=== PATIENT | female | born 1970 | race Caucasian/White ===

== ENCOUNTER 2020-04-10 15:40 | Emergency (ER) | payer OTHER ==
[~2020-04-10 15:40] MED LIST: AMITRIPTYLINE H25 MG PO; ASPIRIN EC81 MG PO; ATORVASTATIN CA20 MG PO; BENTYL 20MG TAB20 MG PO; KEFLEX CAP 500500 MG PO; LOPRESSOR 25 MG25 MG PO; NEURONTIN800 MG PO; PERCOCET 5/325 T1 EA PO; PHENERGAN 25 MG25 M1 PO; PYRIDIUM200 MG PO; ZOFRAN4 MG PO
[2020-04-10 17:07] LABS: BUN/CREATININE RATIO 23 (0-10)
[2020-04-10 17:31] LABS: HEMOGLOBIN 11.6 gm/dl (12.3-15.3); RED BLOOD COUNT 4.02 M/UL (4.00-5.10)
== END 2020-04-10 18:41 | disposition home or self-care (01) ==
LOC: ER1 15:40
PROVIDERS: Preventive Medicine Occupational Medicine
DX: I47.1 Supraventricular tachycardia (principal); Z88.5 Allergy status to narcotic agent; Z88.8 Allergy status to other drugs, medicaments and biological substances
CPT/HCPCS: 80048; 82550; 82553; 83874; 84484; 85025; 93005; 96374; 99285; J0153

== ENCOUNTER → 2020-04-26 | Outpatient (CLI) | payer OTHER ==
[2020-04-26 09:03] LABS: HEMOGLOBIN 12.2 gm/dl (12.3-15.3); RED BLOOD COUNT 4.16 M/UL (4.00-5.10); WHITE BLOOD COUNT 7.5 K/UL (4.5-11.0)
[2020-04-26 09:24] LABS: BUN/CREATININE RATIO 18 (0-10)
== END ==
LOC: LAB 08:19
PROVIDERS: Internal Medicine Cardiovascular Disease
DX: R07.9 Chest pain, unspecified (principal); I47.1 Supraventricular tachycardia; R00.2 Palpitations; E78.00 Pure hypercholesterolemia, unspecified
CPT/HCPCS: 36415; 71046; 80048; 80061; 85025

== ENCOUNTER 2020-04-30 09:12 | Outpatient (CLI) | payer OTHER ==
[~2020-04-30] VITALS: Ht 175.3 cm; Wt 88.0 kg
== END 2020-05-01 08:41 | disposition home or self-care (01) ==
LOC: CATH 09:12 → PROG CARE 15:51 → CATH 05-01 08:41
DX: I47.1 Supraventricular tachycardia (principal); E78.00 Pure hypercholesterolemia, unspecified; E78.5 Hyperlipidemia, unspecified; K76.0 Fatty (change of) liver, not elsewhere classified; Z88.8 Allergy status to other drugs, medicaments and biological substances; Z88.5 Allergy status to narcotic agent; Z79.82 Long term (current) use of aspirin; Z79.899 Other long term (current) drug therapy; Z98.890 Other specified postprocedural states; Z90.710 Acquired absence of both cervix and uterus; Z85.42 Personal history of malignant neoplasm of other parts of uterus
CPT/HCPCS: 93005; 93613; 93621; 93623; 99152; 99153; C1730; C1733; C1766; J1200; J1644; J2250; J3010; J7040; J7050